=== PATIENT | female | born 1970 | race Caucasian/White ===

== ENCOUNTER 2024-10-19 11:21 | Emergency (ER) | payer BC ==
[~2024-10-19] VITALS: Ht 162.6 cm; Wt 65.0 kg
[2024-10-19 11:31] VITALS: BP 131/85; PULSE 81; RESP 18; O2SAT 99
--- NOTE | 2024-10-19 12:03 | ELECTROCARDIOGRAPH REPORT ---
[facility] Test Date: 2024-10-19 Test Time: 12:01:54 Pat Name: TIMUR CARTWRIGHT Department: [facility]- Patient ID: [id number] Room: Gender: F Wellness Assistant: : 1970 Requested By: EILEEN BENZ Order Number: [id number] Reading MD: Dr. Eileen Benz Measurements Intervals Castor Rate: 79 P: 69 OR: 165 QRS: 53 QRSD: 93 T: 32 QT: 366 QTc: 420 Interpretive Statements Sinus rhythm Baseline wander in lead(s) V1,V2 Electronically Signed On 10-19-2024 12:42:[address] Eileen Benz Please click the below link to view image of tracing.
[2024-10-19 12:06] LABS: MEAN PLATELET VOLUME 9.3 FL (7.4-10.4); RED CELL DISTRIBUTION WIDTH 14.8 % (11.5-14.5)
[2024-10-19 12:30] LABS: CREATININE 0.81 MG/DL (0.40-0.90); TOTAL CARBON DIOXIDE 28.6 MMOL/L (24-32)
[2024-10-19 12:31] LABS: PRO BRAIN NATRIURETIC PEPTIDE < 30 PG/ML (0-125); eCRCL 70 ML/MIN; eGFR 74 ML/MIN
--- NOTE | 2024-10-19 12:36 | RADIOLOGY REPORT ---
DI CHEST,SINGLE VIEW, HISTORY: CP COMPARISON: None None TECHNICAL DATA: 1 view of the chest was obtained. FINDINGS: Lines and tubes: None Cardiomediastinal silhouette: normal Pulmonary vasculature: normal Lung expansion: normal Lung airspace: normal Lung interstitium: normal Pleura: normal Pneumothorax: no Bones: Unremarkable Other: no IMPRESSION: No acute intrathoracic abnormality.
--- NOTE | 2024-10-19 15:48 | Physician Documentation ---
History of Present Illness ~ Chief Complaint: Chest Pain Stated Complaint: CHEST PAIN Time Seen by MD: 15:36 HPI 54-year-old female that presents to the emergency department for left-sided chest pain underneath her left breast that is uncomfortable. Patient denies any shortness of breath substernal chest pain palpitations lightheadedness or any radiating pain. Reports that the penis slightly tender underneath the breast when she pushes on it this pain is somewhat reproducible. She reports that she has a [employer] and is familiar with signs of heart attack she does not think she is having a heart attack isn't sure what the pain is caused from. Pain is not significant and does not interfere with the patient's daily activities. Medication Reconciliation Allergies: Coded Allergies: No Known Allergies (Unverified , 10/19/24) Review of Systems ROS As stated above in the HPI, otherwise all systems are reviewed and negative. Physical Exam Vital Signs: Temperature: 98.5, Source: Temporal, Heart Rate: 81, Respiratory Rate: 18, BP: 131/85, Pulse Oximetry: 99, Weight: 65.000 Oxygen Flow Rate: 0 Physical Exam VITALS: Reviewed and as above. GENERAL: Alert, no apparent distress. HEENT: Normocephalic, atraumatic, PERRL, EOMI, dry mucosa, no erythema RESPIRATORY: Lungs clear, normal breath sounds, no respiratory distress. CHEST: No accessory muscle use, no retractions CV: Regular rate, rhythm, no edema, no murmur, No: JVD GI: Soft, non-tender, bowels sounds present, no rebound, guarding, or rigidity BACK: No CVA tenderness, or swelling MUSCULOSKELETAL No deformities, no edema, left-sided thoracic pain reproducible with palpation. SKIN: Warm and dry, no rash NEURO: Oriented x4, No motor or sensory deficit PSYCH: Normal mood and affect, no agitation Progress Results/Orders Results/Orders Vital Signs 10/19/24 11:31 Temp 98.5 Pulse 81 Resp 18 B/P (MAP) 131/85 Pulse Ox 99 O2 Flow Rate 0 Laboratory Tests Test 10/19/24 11:43 10/19/24 14:16 White Blood Count 8.0 Red Blood Count 5.41 Hemoglobin 14.0 Hematocrit 42.8 Mean Corpuscular Volume 79.1 Mean Corpuscular Hemoglobin 25.9 L Mean Corpuscular Hemoglobin Concent 32.8 L Red Cell Distribution Width 14.8 H Platelet Count 303 Mean Platelet Volume 9.3 Neutrophils (%) (Auto) 59.3 Lymphocytes (%) (Auto) 32.0 Monocytes (%) (Auto) 7.2 Eosinophils (%) (Auto) 1.2 Basophils (%) (Auto) 0.3 Neutrophils # (Auto) 4.7 Lymphocytes # (Auto) 2.6 Monocytes # (Auto) 0.6 Eosinophils # (Auto) 0.1 Basophils # (Auto) 0.0 CBC Comment Sodium Level 138 Potassium Level 4.5 Chloride Level 101 Carbon Dioxide Level 28.6 Anion Gap 8 Blood Urea Nitrogen 8 Creatinine 0.81 Estimated GFR/1.73 m2 74 BUN/Creatinine Ratio 9.9 L Glucose Level 108 H Calcium Level 9.1 Troponin I High Sensitivity < 4 L < 4 L Troponin I High Sens Percent Delta Troponin I Hi Sens Absolute Change Pro-B-Type Natriuretic Peptide < 30 Albumin 4.0 Chemistry Comments Medical Decision Making Findings Exam without evidence of volume overload so doubt heart failure. EKG without signs of active ischemia. Given the timing of pain to ER presentation, single troponin was neagtive. Repeat Trop was negative.so doubt NSTEMI. Presentation not consistent with acute PE,pneumothorax (not visualized on chest xr), thoracic aortic dissection, pericarditis, pneumonia (no infectious symptoms, clear chest xr), myocarditis (no recent illness, neg trop). We will discharge patient home with PMD follow up. Return to the emergency department with worsening of current any additional concerning symptoms that we discussed here today i.e. shortness of breath chest pain that radiates chest pain that is persistent substernal chest pain palpitations lightheadedness dizziness nausea vomiting. Differential Dx:Considerations: Include: angina, aortic dissection, chest wall pain, cholelithiasis, CHF, costochondritis, esophageal reflux/spasm, gastritis, herpes zoster, myocardial infarction, pericarditis, pleuritis, pancreatitis, pneumonia, pneumothorax, pulmonary embolus, other Departure Disposition: 01 HOME / SELF CARE / HOMELESS Impression: Primary Impression: Chest wall pain Condition: Stable Discharge Instructions: Nonspecific Chest Pain, Adult, Chest Wall Pain Additional Instructions: Exam without evidence of volume overload so doubt heart failure. EKG without signs of active ischemia. Given the timing of pain to ER presentation, single troponin was neagtive. Repeat Trop was negative.so doubt NSTEMI. Presentation not consistent with acute PE,pneumothorax (not visualized on chest xr), thoracic aortic dissection, pericarditis, pneumonia (no infectious symptoms, clear chest xr), myocarditis (no recent illness, neg trop). We will discharge patient home with PMD follow up. Return to the emergency department with worsening of current any additional concerning symptoms that we discussed here today i.e. shortness of breath chest pain that radiates chest pain that is persistent substernal chest pain palpitations lightheadedness dizziness nausea vomiting. Referrals: NO PRIMARY CARE PROVIDER (PCP) Education Educated: Patient Educated regarding: diagnosis, prognosis, need for follow up Signature Scribe Signature: A Attestation: Scribed for Awilda Hopson by MIKAELA Garcia . 10/19/24 15:50 AWILDA HOPSON Oct 19, 2024 15:48
[2024-10-19 15:53] VITALS: TEMP 98.5
== END 2024-10-19 15:55 | disposition home or self-care (01) ==
LOC: ER 11:24
DX: R07.89 Other chest pain (principal)
CPT/HCPCS: 36415; 71045; 80048; 83880; 84484; 85025; 93005; 99285